=== PATIENT | male | born 1960 | race Hispanic/Latino ===

== ENCOUNTER 2018-10-09 09:05 | Outpatient (CLI) | payer BC ==
--- NOTE | 2018-10-09 10:51 | ULT ---
RENAL SONOGRAM: History: Chronic renal disease. FINDINGS: Right kidney is 10.0 cm and left is 11.8 cm. Each has a normal sonographic appearance without evidenc e of mass, stone, or hydronephrosis. Urinary bladder is incompletely distended. Bilateral ureteral je ts are visualized. IMPRESSION: Normal renal sonogram. POS: [facility]
== END 2018-10-09 09:06 | disposition home or self-care (01) ==
LOC: BICULT 09:05
PROVIDERS: ATTEND Internal Medicine Nephrology
DX: N18.3 Chronic kidney disease, stage 3 (moderate) (principal)
CPT/HCPCS: 76770

== ENCOUNTER 2019-07-05 15:53 | Inpatient (IN) | payer BC, SELFPAY ==
[2019-07-05] MEDS ORDERED: Loperamide HCl 2 MG CAP ONE (16:39)
[2019-07-05 17:01] LABS: #Basophils 0.1 thou/uL (0.0-0.2); #Eosinphils 0.1 thou/uL (0.0-0.7); #Monocytes 0.7 thou/uL (0.11-0.59); %Basophils 0.5 % (0.0-1.0); %Eosinophils 0.9 % (0.0-10.0); %Lymphocytes 18.5 % (21.0-51.0); %Monocytes 6.4 % (0.0-10.0); %Neutrophils 73.7 % (42.0-75.0); Hemoglobin 13.4 g/dL (14.0-18.0); Mean Corpuscular HGB CONC 34.6 g/dL (32.0-36.0); Mean Corpuscular Hemoglobin 28.2 pg (27.0-31.0); Mean Corpuscular Volume 81.5 fL (78.0-98.0); Mean Platelet Volume 7.6 fL (7.4-10.4); Platelet Count 210 thou/uL (130-400); RBC Distribution Width 13.7 % (11.5-14.5); Red Blood Cell (RBC) Count 4.76 mill/uL (4.70-6.10); White Blood Cell (WBC) Count 10.9 thou/uL (4.8-10.8)
[2019-07-05 17:21] LABS: ALT (SGPT) 15 U/L (8-55); AST (SGOT) 16 U/L (5-34); Albumin 4.2 g/dL (3.5-5.0); Alkaline Phosphatase 79 U/L (40-110); Anion Gap 13 mmol/L (10-20); BUN (Urea Nitrogen) 79 mg/dL (8.4-25.7); Bilirubin, Total 0.3 mg/dL (0.2-1.2); Calc. Creatinine Clearance 0 mL/min (70-130); Calcium 9.2 mg/dL (7.8-10.44); Carbon Dioxide 15 mmol/L (22-29); Chloride 113 mmol/L (98-107); Estimated GFR-MDRD 22; Globulin 3.9 g/dL (2.4-3.5); Glucose 167 mg/dL (70-105); Potassium 4.9 mmol/L (3.5-5.1); Protein, Total 8.1 g/dL (6.0-8.3); Sodium 136 mmol/L (136-145)
[2019-07-05] MEDS ORDERED: Dextrose 5% in Water 1,000 ML IV PRN (20:10)
[2019-07-05] MEDS ORDERED: Dextrose 50% Abboject 50 ML SYRINGE SLOW IVP PRN (20:10)
[2019-07-05] MEDS ORDERED: Guaifenesin DM 100-10/5 ML UDCUP PO PRN (20:10)
[2019-07-05] MEDS ORDERED: Acetaminophen 325 MG TAB PO PRN (20:10)
[2019-07-05] MEDS ORDERED: Ondansetron PF 4 MG/2 ML Vial IVP PRN (20:10)
[2019-07-05] MEDS ORDERED: ADMIXTURE FEE SC SCH ×2 (21:00→23:59)
[2019-07-05] MEDS ORDERED: INSULIN GLARGINE SC SCH ×2 (21:00→23:59)
[2019-07-05] MEDS ORDERED: PRE FILLED SC SCH ×2 (21:00→23:59)
[2019-07-05] MEDS ORDERED: Ciprofloxacin Lactate/D5W 200 MG in Premix Bag 1 BAG IVPB SCH (21:00)
--- NOTE | 2019-07-05 21:02 | HP ---
REASON FOR ADMISSION: Diarrheal illness from last 2 weeks, acute kidney injury, and metabolic acidosis. HISTORY OF PRESENTING ILLNESS: The patient gives history of having watery diarrhea nearly 8 times a day from last 2 weeks. No nausea or vomiting. No blood or mucus in the stool. He lives with his who does not have any similar illness. He has had abdominal colic, which is generalized. No complaints of fever at home. No prior colonoscopies as far as the patient can remember. PAST MEDICAL AND SURGICAL HISTORY: History of atrial fibrillation on Xarelto, dyslipidemia, diabetes mellitus type 2, hypertension, likely chronic kidney disease stage 2 to 3 and appendectomy. CURRENT MEDICATIONS: The patient is on: 1. Xarelto 20 mg daily. 2. Hydrochlorothiazide 25 mg daily. 3. Levemir 35 units subcutaneous twice daily. 4. Lipitor 10 units daily. 5. Coreg 6.25 mg twice daily. 6. Glipizide extended release 10 mg twice daily. 7. Quinapril 40 mg p.o. daily. ALLERGIES: NO KNOWN DRUG ALLERGIES. PERSONAL HISTORY: Quit drinking alcohol 2-3 years back, prior to which was drinking more than 12 packs on the weekend. Does not abuse drugs or smoke. FAMILY HISTORY: Mother at the age of 75 years from unknown cause. Father at the age of 86 years. He had history of diabetes. CODE STATUS: Full. Power of civil rights attorney is his . REVIEW OF SYSTEMS: CONSTITUTIONAL: Negative for weight loss or gain, ability to conduct usual activities. SKIN: Negative for rash, itching. EYES: Negative for double vision, pain. ENT/MOUTH: Negative for nose bleeding, neck stiffness, pain, tenderness. CARDIOVASCULAR: Negative for palpitations, dyspnea on exertion, orthopnea. RESPIRATORY: Negative for shortness of breath, wheezing, cough, hemoptysis, fever or night sweats. GASTROINTESTINAL: Negative for poor appetite, abdominal pain, heartburn, nausea, vomiting, constipation, or diarrhea. GENITOURINARY: Negative for urgency, frequency, dysuria, nocturia. MUSCULOSKELETAL: Negative for pain, swelling. NEUROLOGIC/PSYCHIATRIC: Negative for anxiety, depression. ALLERGY/IMMUNOLOGIC: Negative for skin rash, bleeding tendency. PHYSICAL EXAMINATION: GENERAL: The patient is a 59-year-old male, who is currently not in any acute distress. VITAL SIGNS: Blood pressure 160/90, pulse 76 per minute, respiratory rate 18 per minute, temperature 97.7 degrees Fahrenheit, and saturating 100% on room air. NECK: Supple. No elevated JVD. HEENT: Eyes; extraocular muscles intact. Pupils reacting to light. Oral cavity, mucous membranes are dry. No exudates or congestion. CARDIOVASCULAR: S1, S2 heard. Regular rhythm. RESPIRATORY: Air entry 1+ bilateral. No rales or rhonchi. ABDOMEN: Soft. Bowel sounds heard. No tenderness, rigidity, or guarding. EXTREMITIES: No peripheral edema or calf tenderness. VASCULAR: Peripheral pulses 1+ bilateral. No ischemic ulcerations or gangrene. CENTRAL NERVOUS SYSTEM: No gross focal deficits noted. The patient is alert, awake, and oriented well. PSYCHIATRIC: The patient's mood is euthymic. No hallucinations or delusions. LABORATORY DATA: White count of 10, H and H 13 and 38, platelet count is 210 with 73% neutrophils, MCV is 81, serum bicarb 15, serum chloride 113, BUN 79, creatinine 2.9, serum glucose 167. Liver enzymes within normal limits. Albumin is 4.2. CLINICAL IMPRESSION AND PLAN: The patient will be admitted to medical floor for acute kidney injury, metabolic acidosis, severe diarrheal illness for the last 2 weeks now. We will obtain stool studies including culture, ova, parasites, Cyclospora, Clostridium difficile and renal function panel in the morning and gentle hydration with normal saline at 100 mL/hour. We will also place him on Cipro and Flagyl. CT of the abdomen with oral contrast only and ultrasound kidneys as well will be obtained. We will continue his Lipitor, Coreg, glipizide and Levemir at a lower dose. Based on the patient's progress during his stay, a gastroenterology consultation will be obtained. We will obtain consultation with Dr. Michel who is on-call for Nephrology. No history of travel outside the country. The patient has birds as pets. No other animals in the house. Job ID: [id number]
--- NOTE | 2019-07-05 21:10 | CT ---
EXAM: Abdomen and pelvic CT scan without contrast: HISTORY: Diarrhea for 2 weeks COMPARISON: None FINDINGS: Very mild linear stranding, nonspecific, in the lung bases. Liver: Unremarkable. Gallbladder:Unremarkable. Pancreas:Unremarkable Spleen:Unremarkable. Adrenal glands:Unremarkable. Kidneys:No renal calculus or acute obstruction. No solid or cystic renal mass. No evidence for large or small bowel obstruction. There is some minimal fluid in mostly the distal an d mid small bowel and right colon without evidence for dilatation or abnormal distention. Minimal nonspecific abnormal superficial subcutaneous and subdermal increased density and fat strandi ng over the right and left superficial anterior abdominal wall at the level the umbilicus. Small fat-containing umbilical hernia. No CT evidence for acute appendicitis. Mildly distended urinary bladder. Reproductive system:Unremarkable No abscess, adenopathy, or abnormal fluid collection within the abdomen or pelvis. IMPRESSION: No significant acute process in the abdomen or pelvis. Some nonspecific superficial subcutaneous fat stranding of the anterior abdominal wall near the level of the umbilicus of uncertain etiology or significance.
[2019-07-05] MEDS ORDERED: metroNIDAZOLE 250 MG, Admixture Fee 1 EACH in Premix Bag 1 BAG IVPB SCH (22:00)
[2019-07-05 22:36] VITALS: BMI 30.7
[2019-07-05] MEDS: metroNIDAZOLE 250 MG, Admixture Fee 1 EACH in Premix Bag 1 BAG IVPB SCH (23:43)
[2019-07-05] MEDS: Sodium Chloride 0.9% 1,000 ML IV SCH (23:43)
[2019-07-05] MEDS: Ciprofloxacin Lactate/D5W 200 MG in Premix Bag 1 BAG IVPB SCH (23:43)
[2019-07-06] MEDS: HumaLOG 300 UNITS/3 ML VIAL SC PRN ×2 (05:46→13:07)
[2019-07-06 08:02] LABS: #Basophils 0.1 thou/uL (0.0-0.2); #Eosinphils 0.2 thou/uL (0.0-0.7); #Lymphocytes 1.7 thou/uL (1.20-3.40); #Monocytes 0.7 thou/uL (0.11-0.59); #Neutrophils 4.4 thou/uL (1.40-6.50); %Basophils 0.8 % (0.0-1.0); %Eosinophils 2.3 % (0.0-10.0); %Lymphocytes 24.2 % (21.0-51.0); %Monocytes 10.1 % (0.0-10.0); %Neutrophils 62.5 % (42.0-75.0); Hemoglobin 11.7 g/dL (14.0-18.0); Mean Corpuscular HGB CONC 34.6 g/dL (32.0-36.0); Mean Corpuscular Hemoglobin 28.3 pg (27.0-31.0); Mean Corpuscular Volume 81.8 fL (78.0-98.0); Mean Platelet Volume 7.4 fL (7.4-10.4); Platelet Count 181 thou/uL (130-400); RBC Distribution Width 13.8 % (11.5-14.5); Red Blood Cell (RBC) Count 4.13 mill/uL (4.70-6.10); White Blood Cell (WBC) Count 7.1 thou/uL (4.8-10.8)
[2019-07-06 08:19] LABS: Albumin 3.5 g/dL (3.5-5.0); Anion Gap 8 mmol/L (10-20); BUN (Urea Nitrogen) 65 mg/dL (8.4-25.7); BUN/Creatinine Ratio 27.43; Calc. Creatinine Clearance 43 mL/min (70-130); Calcium 8.4 mg/dL (7.8-10.44); Carbon Dioxide 17 mmol/L (22-29); Chloride 117 mmol/L (98-107); Estimated GFR-MDRD 28; Glucose 163 mg/dL (70-105); Phosphorus 3.4 mg/dL (2.3-4.7); Potassium 4.4 mmol/L (3.5-5.1); Sodium 138 mmol/L (136-145)
[2019-07-06] MEDS: Atorvastatin Calcium 10 MG TAB PO SCH (08:55)
[2019-07-06] MEDS: glipiZIDE 10 MG TAB PO SCH (08:55)
[2019-07-06] MEDS: metroNIDAZOLE 250 MG, Admixture Fee 1 EACH in Premix Bag 1 BAG IVPB SCH ×3 (08:55→23:39)
[2019-07-06] MEDS: Carvedilol 6.25 MG TAB PO SCH ×2 (08:55→17:02)
[2019-07-06] MEDS: ADMIXTURE FEE SC SCH ×2 (08:59→21:35)
[2019-07-06] MEDS: INSULIN GLARGINE SC SCH ×2 (08:59→21:35)
[2019-07-06] MEDS: PRE FILLED SC SCH ×2 (08:59→21:35)
[2019-07-06] MEDS ORDERED: FLU VACC QS2019-20(6MOS UP)/PF 60 MCG/0.5 ML SYRINGE IM ONE (09:00)
[2019-07-06] MEDS: Sodium Chloride 0.9% 1,000 ML IV SCH ×2 (11:17→21:32)
[2019-07-06] MEDS: Ciprofloxacin Lactate/D5W 200 MG in Premix Bag 1 BAG IVPB SCH (12:56)
--- NOTE | 2019-07-06 13:05 | CON ---
DATE OF CONSULTATION: SUBJECTIVE: Mr. Leon is a 59-year-old male, who was admitted for diarrhea with concomitant acute kidney injury. The acute kidney injury is felt that it may be related to the underlying diarrhea and volume depletion, currently, on empiric volume repletion. Of interest, this patient was at home on hydrochlorothiazide and quinapril and this may be also aggravating the kidney function. He is feeling better this morning. REVIEW OF SYSTEMS: Positive for diarrhea. No chest pain. No shortness of breath. No nausea. No vomiting. Appetite fair. Energy level is fair. No headache. No diplopia. No syncopal episode. No productive cough. No fever or chills. No gross hematuria. No dysuria. No urinary frequency. MEDICATIONS: Home medications include; 1. Glipizide 10 mg p.o. b.i.d. 2. Xarelto 20 mg daily. 3. Quinapril 40 mg daily. 4. Levemir 30 units subcu q.p.m. and 35 units q.a.m. 5. Hydrochlorothiazide 25 mg once a day. 6. Carvedilol 1 tablet b.i.d. 7. Atorvastatin 10 mg at bedtime. Current medications today include; 1. Carvedilol 6.25 mg p.o. b.i.d. 2. Cipro 200 mg b.i.d. 3. Glipizide 10 mg daily. 4. Humalog sliding scale. 5. Metronidazole 250 mg q.8 hours. 6. Normal saline 100 mL/h. 7. Glargine insulin 25 units subcu b.i.d. PAST MEDICAL HISTORY: 1. History of hypertension. 2. History of hyperlipidemia. 3. History of diabetes mellitus. 4. History of AFib. PAST SURGICAL HISTORY: Includes status post appendectomy, status post failed cardioversion. SOCIAL HISTORY: The patient is , 5 children. 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 No smoking. No alcohol intake. No IV drug abuse. Education, 6th grade. Sedentary lifestyle. ALLERGIES: NONE. TRAUMA: None. IMMUNIZATIONS: Not up-to-date. HOSPITALIZATIONS: Please see past medical history. FAMILY HISTORY: No family history of ESRD. PHYSICAL EXAMINATION: VITAL SIGNS: Blood pressure is 147/75, heart rate 73, respiratory rate 16, temperature 97.7, and pulse ox 96%. GENERAL: Noted to be awake, alert, comfortable, not in distress. SKIN: Adequate turgor. HEENT: Pinkish conjunctivae. Anicteric sclerae. NECK: No neck mass. No carotid bruits. No JVD. CHEST: No deformities. LUNGS: Clear breath sounds. No wheezing. No crackles. HEART: Normal sinus rhythm. No murmur. No gallops. No rubs. ABDOMEN: Globular, soft, and nontender. No masses. EXTREMITIES: No edema. NEUROLOGICAL: Moving all extremities. No tremors. No asterixis. No ataxia. LABORATORY DATA: Laboratories of July 06, 2019; white count 7.9, hemoglobin 11.7. Sodium 138, potassium 4.4, chloride 117, carbon dioxide 17, BUN 65, creatinine 2.37. On July 05, 2019, creatinine 2.93. On May 26, 2016, creatinine 1.4. CT scan of the abdomen and pelvis shows no significant process in the abdomen or pelvis. Kidneys showed no obstruction or renal calculi. Adrenal was unremarkable. ASSESSMENT AND PLAN: Acute kidney injury, consider hemodynamically-mediated renal dysfunction secondary to the diarrhea. I also feel that his medication hydrochlorothiazide and quinapril are playing a factor. This will be discontinued temporarily. There is no indication for any dialytic intervention. Agree with empiric volume repletion with this patient. In addition, urinalysis will be ordered for the patient to rule out any underlying diabetic nephropathy. Job ID: [id number]
[2019-07-06 14:31] LABS: Bacteria/HPF None Seen HPF (None Seen); Bilirubin Negative (Negative); Blood, Urine Negative (Negative); Clarity Clear (Clear); Glucose, Urine (Dipstick) 500 mg/dL (Negative); Leukocyte Negative Leu/uL (Negative); Nitrite Negative (Negative); Protein, Urine (Dipstick) Negative (Neg-Trace); RBC/HPF 0-3 HPF (0-3); Squamous Epithelial 0-3 HPF (0-3); Urobilinogen Normal mg/dL (Less than 2); WBC/HPF 0-3 HPF (0-3)
--- NOTE | 2019-07-06 16:27 | PDOC.HOSPP ---
- Subjective Encounter Date: 07/06/19 Encounter Time: 08:00 Subjective: diarrhea william has become less after hospitalization but still has it no nausea, is eating well at bedside - Objective Vital Signs & Weight: Vital Signs (12 hours) Temp Pulse Resp BP BP BP Pulse Ox 07/06/19 15:35 97.6 F 75 16 126/80 96 07/06/19 12:00 97.5 F L 75 16 128/72 96 07/06/19 08:55 147/75 H 07/06/19 07:32 97.7 F 73 16 147/75 H 96 Weight Weight 196 lb 9.6 oz I&O: 07/05/19 07/06/19 07/07/19 06:59 06:59 06:59 Intake Total 1180 480 Balance 1180 480 Result Diagrams: 07/06/19 07:42 07/06/19 07:42 Additional Labs: Accuchecks 07/06/19 07/06/19 07/05/19 12:08 04:06 23:56 POC Glucose 164 H 195 H 201 H Hospitalist ROS - Medication Medications: Active Medications Generic Name Dose Route Start Last Admin Trade Name William PRN Reason Stop Dose Admin Atorvastatin Calcium 10 mg 07/06/19 09:00 07/06/19 08:55 Lipitor PO 10 mg DAILY MUNA Administration Carvedilol 6.25 mg 07/06/19 08:00 07/06/19 08:55 Coreg PO 6.25 mg BID-WM MUNA Administration Glipizide 10 mg 07/06/19 07:30 07/06/19 08:55 Glucotrol PO 10 mg DAILY-AC MUNA Administration Sodium Chloride 1,000 mls @ 100 mls/hr 07/05/19 20:30 07/06/19 11:17 Normal Saline 0.9% IV 1,000 mls .Q10H MUNA Administration Metronidazole 250 mg/ 50 mls @ 100 mls/hr 07/05/19 23:59 07/06/19 08:55 Miscellaneous Medication 1 IVPB 50 mls each/ Device 0800,1600,2359 MUNA Administration Insulin Glargine 25 units/ 0.25 mls @ 0 mls/hr 07/06/19 09:00 07/06/19 08:59 Miscellaneous Medication 1 SC 0.25 mls each/ Miscellaneous Medication BID MUNA Administration Ciprofloxacin/Dextrose 200 mg/ 100 mls @ 100 mls/hr 07/06/19 01:00 07/06/19 12:56 Device IVPB 100 mls 0100,1300 MUNA Administration Insulin Human Lispro 0 units 07/05/19 20:10 07/06/19 13:07 Humalog SC 2 unit .MODERATE SLIDING SC PRN Administration Moderate Correctional Scale - Exam General Appearance: NAD, awake alert Eye: PERRL, anicteric sclera ENT: no oropharyngeal lesions, dry oral mucosa Neck: supple, no JVD Heart: RRR, no murmur Respiratory: no wheezes, no rales Gastrointestinal: soft, non-tender, non-distended, normal bowel sounds, no guarding, no rigidity Extremities: no cyanosis, no edema Neurological: cranial nerve grossly intact, no focal deficits Psychiatric: normal affect, A&O x 3 Hosp A/P (1) Gastroenteritis Code(s): K52.9 - NONINFECTIVE GASTROENTERITIS AND COLITIS, UNSPECIFIED Status : Acute (2) JASON (acute kidney injury) Code(s): N17.9 - ACUTE KIDNEY FAILURE, UNSPECIFIED Status: Acute (3) Metabolic acidosis Code(s): E87.2 - ACIDOSIS Status: Acute (4) Paroxysmal A-fib Code(s): I48.0 - PAROXYSMAL ATRIAL FIBRILLATION Status: Chronic (5) DM type 2 (diabetes mellitus, type 2) Status: Chronic Qualifiers: 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5 - HYPERLIPIDEMIA, UNSPECIFIED Status: Chronic - Plan xarelto is held for possible procedures if needed stool w/u so far is -ve, await cyclospora results will get GI opinion stool occult is -ve on cipro, flagyl, iv fluids continue coreg, lipitor, glipizide ct abd shows no ac pathology
--- NOTE | 2019-07-06 19:11 | CON ---
DATE OF CONSULTATION: 07/06/2019 REASON FOR CONSULTATION: Diarrhea, acute kidney injury. CONSULTING PROVIDER: Sherri Poon MD HISTORY OF PRESENT ILLNESS: The patient is a 59-year-old male with past medical history of hyperlipidemia, diabetes, hypertension, and probable chronic kidney disease presenting with complaints of diarrhea and acute kidney. He states that prior to two weeks ago, he was having approximately 1 to 3 solid to semi-solid bowel movements per day alternating between more loose type stools and constipation requiring increased straining in order to facilitate defecation; however, approximately 2 weeks ago, he began having more diarrhea, characterized as having four liquid bowel movements per day, that were associated with fecal urgency, but did not have any difficulty with defecation. He also endorse increased generalized weakness. It progressively got worse over the last 2 weeks that ultimately prompted him to seek healthcare assistance at [facility] ER. While in the ER, he was noted to have an elevated BUN and creatinine consistent with acute kidney injury, was ultimately admitted to the hospital for further evaluation of his diarrhea and resulted dehydration. He was placed on IV fluids, and after undergoing an infectious stool workup, was placed on ciprofloxacin and Flagyl. While on these regimens, he has had one semi-solid bowel movement this morning with no further episodes of diarrhea later on today. Currently, he denies any nausea, vomiting, fevers, chills, abdominal pain, dysphagia, odynophagia, constipation, hematemesis, melena, or hematochezia. Of note, approximately 2 weeks ago, the patient had consumed tacos from a taco truck and it was soon after the consumption of these tacos that his diarrhea appeared. REVIEW OF SYSTEMS: A 10-category review of systems was obtained with all responses negative except for the pertinent positives as listed in HPI. PAST MEDICAL HISTORY: As per HPI. PAST SURGICAL HISTORY: Appendectomy. FAMILY HISTORY: Denies any GI malignancies. SOCIAL HISTORY: Denies any tobacco, alcohol, or illicit drug use. OUTPATIENT MEDICATIONS: Reviewed. ALLERGIES: NO KNOWN DRUG ALLERGIES. PHYSICAL EXAMINATION: VITAL SIGNS: Temperature 97.6, pulse 75, blood pressure 126/80, respiratory rate 16, saturating 96% on room air. GENERAL: The patient was lying in bed, in no acute distress. Alert and oriented x4. Latvian-speaking only. HEENT: Normocephalic and atraumatic. NECK: Supple. No JVD or scleral icterus noted. CARDIOVASCULAR: Regular rate and rhythm with no discernible murmurs, gallops, or rubs. RESPIRATORY: Clear to auscultation bilaterally with no discernible wheezes or rales. ABDOMEN: Normoactive bowel sounds. Soft, nontender, nondistended. EXTREMITIES: No cyanosis, clubbing, or edema. LABORATORY DATA: CBC with a white blood cell count of 7.1, hemoglobin 11.7, hematocrit 33.8, platelets 181. Chemistry with a sodium of 138, potassium 4.4, chloride 117, CO2 17, BUN 65, creatinine 2.37, glucose 163. AST 16, ALT 15, alkaline phosphatase 79, total bilirubin 0.3. Infectious stool studies have thus far been negative for Campylobacter, E coli, and C diff with the ova and parasites also negative. Stool culture is still pending at this time. IMAGING DATA: CT of the abdomen and pelvis was obtained on July 05, 2019, which showed minimal fluid within the mid and distal small bowel in addition to a small fat containing umbilical hernia. There was no other intraabdominal processes noted on imaging. ASSESSMENT AND PLAN: The patient is a 59-year-old male with past medical history of atrial fibrillation, hyperlipidemia, diabetes, hypertension, and probable chronic kidney disease, presenting with worsening diarrhea, and resultant acute kidney injury from dehydration, most likely from an infectious etiology. Acute onset diarrhea. The patient states that he was in his usual state of health until approximately 2 weeks ago when he began to have increased watery bowel movements after consuming food from a food truck. This was characterized as having approximately four liquid bowel movements per day and despite being thirsty all the time and trying to maintain oral intake. When admitted here to the hospital, he was noted to have an elevated BUN and creatinine consistent with acute kidney injury. However, since being placed on antibiotic therapy, he has had a significant reduction in his bowel movements having only approximately one over the last 24 hours. At this time, the likelihood of an infectious etiology is more likely given his acute onset diarrhea and response to antibiotic regimen. However, stool culture still pending at this time, so further tailoring of antibiotics cannot be performed, and he may ultimately require treatment with both ciprofloxacin and Flagyl for a total of 7 days. Upon further questioning the patient, he did have some alternating bowel habits prior to coming into the hospital, which may make a little more confusing, but had a fairly low fiber intake which could contribute to onset of chronic diarrhea as well. RECOMMENDATIONS: 1. Would continue antibiotic regimen as you are doing, but would consider changing to oral regimen in anticipation of discharge for a total of 7-day therapy. 2. Continue with IV fluids and monitoring of patient's renal function. 3. Would recommend a higher fiber diet upon discharge. 4. Would continue to monitor patient's stool output over the next 24 hours, and if minimal, we would could consider discharge to home and follow up in the outpatient clinic. 5. No endoscopic management is indicated at this time given almost complete resolution of the diarrhea. We will continue to follow. Please call with any questions. Job ID: [id number]
[2019-07-07] MEDS: Ciprofloxacin Lactate/D5W 200 MG in Premix Bag 1 BAG IVPB SCH ×2 (01:56→12:31)
[2019-07-07] MEDS: Sodium Chloride 0.9% 1,000 ML IV SCH ×2 (05:21→17:31)
[2019-07-07 06:30] LABS: Albumin 3.4 g/dL (3.5-5.0); Anion Gap 9 mmol/L (10-20); BUN (Urea Nitrogen) 47 mg/dL (8.4-25.7); Calc. Creatinine Clearance 49 mL/min (70-130); Carbon Dioxide 16 mmol/L (22-29); Chloride 115 mmol/L (98-107); Estimated GFR-MDRD 33; Glucose 118 mg/dL (70-105); Phosphorus 2.9 mg/dL (2.3-4.7); Potassium 4.3 mmol/L (3.5-5.1); Sodium 136 mmol/L (136-145)
[2019-07-07] MEDS: PRE FILLED SC SCH ×2 (07:55→19:40)
[2019-07-07] MEDS: ADMIXTURE FEE SC SCH ×2 (07:55→19:40)
[2019-07-07] MEDS: INSULIN GLARGINE SC SCH ×2 (07:55→19:40)
[2019-07-07] MEDS: Atorvastatin Calcium 10 MG TAB PO SCH (07:56)
[2019-07-07] MEDS: glipiZIDE 10 MG TAB PO SCH (07:56)
[2019-07-07] MEDS: Carvedilol 6.25 MG TAB PO SCH ×2 (07:56→16:52)
[2019-07-07] MEDS: metroNIDAZOLE 250 MG, Admixture Fee 1 EACH in Premix Bag 1 BAG IVPB SCH ×3 (08:43→23:18)
[2019-07-07] MEDS: Sodium Bicarbonate Tab 325 MG TAB PO SCH ×3 (10:14→19:40)
--- NOTE | 2019-07-07 10:18 | PRG ---
DATE OF SERVICE: 07/07/2019 SUBJECTIVE: Mr. Leon is a 59-year-old male who was seen for his acute kidney injury. He was noted to have had a hemodynamically-mediated renal dysfunction. The patient was currently taking Accupril and hydrochlorothiazide. This has been discontinued. He is on empiric volume repletion. The diarrhea may have precipitated acute kidney injury. No other complaints today. No chest pain or shortness of breath. OBJECTIVE: VITAL SIGNS: Blood pressure 125/77, heart rate 77, respiratory rate 18, temperature 97.4, and pulse ox 97%. GENERAL: Noted to be awake, alert, comfortable, not in distress. SKIN: Adequate turgor. HEENT: He has a pinkish conjunctivae. Anicteric sclerae. NECK: No neck mass. No carotid bruits. No JVD. CHEST: No deformities. LUNGS: Clear breath sounds. HEART: Normal sinus rhythm. No murmur. No gallops. No rubs. ABDOMEN: Globular, soft, nontender. No masses. EXTREMITIES: Show no edema, no deformities. MEDICATIONS: Medications of July 07, 2019, was reviewed. LABORATORY DATA: Laboratories of July 07, 2019; sodium 136, potassium 4.3, chloride 115, carbon dioxide 16, BUN 47, creatinine 2.08, glucose 118, calcium 8, phosphorus 2.9, albumin 3.4. ASSESSMENT AND PLAN: 1. Acute kidney injury - hemodynamically-mediated renal dysfunction. Slowly improving renal function. Continue IV hydration. No indication for any dialytic intervention. Please note, creatinine peaked at 2.93 and is now currently at 2.08. 2. Metabolic acidosis. Start sodium bicarbonate 650 mg one tablet t.i.d. Recheck basic metabolic panel in a.m. Job ID: [id number]
--- NOTE | 2019-07-07 13:36 | PDOC.HOSPP ---
- Subjective Encounter Date: 07/07/19 Encounter Time: 08:45 Subjective: no diarrhea now is eating well at bedside - Objective Vital Signs & Weight: Vital Signs (12 hours) Temp Pulse Resp BP BP Pulse Ox 07/07/19 11:31 97.9 F 70 18 124/73 98 07/07/19 08:00 97.4 F L 77 18 125/77 97 07/07/19 07:56 126/80 Weight Weight 196 lb 9.6 oz I&O: 07/06/19 07/07/19 07/08/19 06:59 06:59 06:59 Intake Total 1180 3880 600 Balance 1180 3880 600 Result Diagrams: 07/06/19 07:42 07/07/19 05:38 Additional Labs: Accuchecks 07/07/19 07/07/19 07/06/19 11:36 04:36 19:43 POC Glucose 118 H 112 H 207 H 07/06/19 15:39 POC Glucose 119 H Hospitalist ROS - Medication Medications: Active Medications Generic Name Dose Route Start Last Admin Trade Name Meng PRN Reason Stop Dose Admin Atorvastatin Calcium 10 mg 07/06/19 09:00 07/07/19 07:56 Lipitor PO 10 mg DAILY MUNA Administration Carvedilol 6.25 mg 07/06/19 08:00 07/07/19 07:56 Coreg PO 6.25 mg BID-WM MUNA Administration Glipizide 10 mg 07/06/19 07:30 07/07/19 07:56 Glucotrol PO 10 mg DAILY-AC MUNA Administration Sodium Chloride 1,000 mls @ 100 mls/hr 07/05/19 20:30 07/07/19 05:21 Normal Saline 0.9% IV 1,000 mls .Q10H MUNA Administration Metronidazole 250 mg/ 50 mls @ 100 mls/hr 07/05/19 23:59 07/07/19 08:43 Miscellaneous Medication 1 IVPB 50 mls each/ Device 0800,1600,2359 MUNA Administration Insulin Glargine 25 units/ 0.25 mls @ 0 mls/hr 07/06/19 09:00 07/07/19 07:55 Miscellaneous Medication 1 SC 0.25 mls each/ Miscellaneous Medication BID MUNA Administration Ciprofloxacin/Dextrose 200 mg/ 100 mls @ 100 mls/hr 07/06/19 01:00 07/07/19 12:31 Device IVPB 100 mls 0100,1300 MUNA Administration Insulin Human Lispro 0 units 07/05/19 20:10 07/06/19 13:07 Humalog SC 2 unit .MODERATE SLIDING SC PRN Administration Moderate Correctional Scale Sodium Bicarbonate 650 mg 07/07/19 09:00 07/07/19 10:14 Bicarbonate, Sodium PO 650 mg TID MUNA Administration - Exam General Appearance: NAD, awake alert Eye: PERRL, anicteric sclera ENT: no oropharyngeal lesions, moist mucosa Neck: supple, no JVD Heart: no murmur, no gallops Respiratory: no wheezes, no rales Gastrointestinal: soft, non-tender, non-distended, normal bowel sounds Extremities: no cyanosis, no edema Neurological: cranial nerve grossly intact, no focal deficits Psychiatric: normal affect, A&O x 3 Hosp A/P (1) Gastroenteritis Code(s): K52.9 - NONINFECTIVE GASTROENTERITIS AND COLITIS, UNSPECIFIED Status : Resolved (2) JASON (acute kidney injury) Code(s): N17.9 - ACUTE KIDNEY FAILURE, UNSPECIFIED Status: Acute (3) Metabolic acidosis Code(s): E87.2 - ACIDOSIS Status: Acute (4) Paroxysmal A-fib Code(s): I48.0 - PAROXYSMAL ATRIAL FIBRILLATION Status: Chronic (5) DM type 2 (diabetes mellitus, type 2) Status: Chronic Qualifiers: Diabetes mellitus jail insulin use: with bed bug exterminator use Diabetes mellitus complication status: with kidney complications Diabetes mellitus complication detail: with chronic kidney disease Chronic kidney disease stage : stage 3 (moderate) Qualified Code(s): E11.22 - Type 2 diabetes mellitus with diabetic chronic kidney disease; N18.3 - Chronic kidney disease, stage 3 ( moderate); Z79.4 - [facility] (current) use of insulin (6) HTN (hypertension) Code(s): I10 - ESSENTIAL (PRIMARY) HYPERTENSION Status: Chronic Qualifiers: Hypertension type: essential hypertension Qualified Code(s): I10 - Essential (primary) hypertension (7) Dyslipidemia Code(s): E78.5 - HYPERLIPIDEMIA, UNSPECIFIED Status: Chronic - Plan restart xarelto stool w/u so far is -ve, await cyclospora results stool occult is -ve on cipro, flagyl, iv fluids continue coreg, lipitor, glipizide ct abd shows no ac pathology dc plan in am renal function is slowly trending towards baseline
--- NOTE | 2019-07-07 22:56 | PRG ---
DATE OF SERVICE: 07/07/2019 REASON FOR CONSULTATION: Diarrhea, acute kidney injury. SUBJECTIVE: The patient states that he did not have any bowel movements today and has had no other problems or abnormalities during the course of the last 24 to 48 hours. Currently, he denies any nausea, vomiting, fevers, chills, abdominal pain, dysphagia, odynophagia, constipation, hematemesis, melena, or hematochezia. OBJECTIVE: VITAL SIGNS: Temperature 97.7, pulse 85, blood pressure 155/77, respiratory rate 18, saturating 97% on room air. GENERAL: The patient was lying in bed, in no acute distress. Alert and oriented x4. [place]or[place]-speaking only. CARDIOVASCULAR: Irregularly irregular rhythm. RESPIRATORY: Clear to auscultation bilaterally. ABDOMEN: Normoactive bowel sounds. Soft, nontender, nondistended. EXTREMITIES: No cyanosis, clubbing, or edema. LABORATORY DATA: Chemistry with a sodium of 136, potassium 4.3, chloride 115, CO2 of 16, BUN 47, creatinine 2.08, glucose 118. IMAGING DATA: No current GI imaging is available for review. ASSESSMENT AND PLAN: The patient is a 59-year-old male with past medical history of atrial fibrillation, hyperlipidemia, diabetes, hypertension, and probable chronic kidney disease presenting with significant diarrhea resulting in acute kidney injury from dehydration. Diarrhea. The patient initially presented with severe diarrhea having approximately four liquid bowel movements per day, but apparently resulted in significant dehydration as evidenced by elevated BUN and creatinine on initial labs in the ER. However, since being placed on antibiotic therapy and in addition to IV fluids, he has had significant reduction in the number of bowel movements he has had over the last 24 to 48 hours. Preliminary lead on stool culture is negative thus far showing normal enteric duyen raising the question whether or not an infectious etiology for his significant diarrhea versus a poor fiber diet or viral illness. However, given his good response to the antibiotic therapy that should be required for a total duration of therapy of approximately 7 days. RECOMMENDATIONS: 1. We will continue with the antibiotic regimen as you are doing, but consider changing to oral regimen in anticipation of discharge. 2. Continue IV fluids and monitoring the patient's renal function. 3. We would recommend higher fiber diet. Given the patient's improving renal function and complete resolution of the diarrhea, we will sign off. Please call with any additional questions. Job ID: [id number]
[2019-07-08] MEDS: Ciprofloxacin Lactate/D5W 200 MG in Premix Bag 1 BAG IVPB SCH (00:21)
[2019-07-08] MEDS: Sodium Chloride 0.9% 1,000 ML IV SCH (04:22)
[2019-07-08 06:22] LABS: Albumin 3.2 g/dL (3.5-5.0); Anion Gap 11 mmol/L (10-20); BUN (Urea Nitrogen) 33 mg/dL (8.4-25.7); BUN/Creatinine Ratio 17.19; Calc. Creatinine Clearance 53 mL/min (70-130); Calcium 7.8 mg/dL (7.8-10.44); Carbon Dioxide 16 mmol/L (22-29); Chloride 118 mmol/L (98-107); Estimated GFR-MDRD 36; Glucose 128 mg/dL (70-105); Phosphorus 2.2 mg/dL (2.3-4.7); Potassium 4.5 mmol/L (3.5-5.1); Sodium 140 mmol/L (136-145)
[2019-07-08] MEDS: glipiZIDE 10 MG TAB PO SCH (09:20)
[2019-07-08] MEDS: Sodium Bicarbonate Tab 325 MG TAB PO SCH (09:20)
[2019-07-08] MEDS: Atorvastatin Calcium 10 MG TAB PO SCH (09:20)
[2019-07-08] MEDS: Carvedilol 6.25 MG TAB PO SCH (09:20)
[2019-07-08] MEDS: INSULIN GLARGINE SC SCH (09:53)
[2019-07-08] MEDS: metroNIDAZOLE 250 MG, Admixture Fee 1 EACH in Premix Bag 1 BAG IVPB SCH (09:53)
[2019-07-08] MEDS: PRE FILLED SC SCH (09:53)
[2019-07-08] MEDS: ADMIXTURE FEE SC SCH (09:53)
--- NOTE | 2019-07-08 09:55 | PRG ---
DATE OF SERVICE: 07/08/2019 SUBJECTIVE: Mr. Leon is a 59-year-old male, who was seen by [facility]al [facility] for his acute kidney injury. He initially came with diarrhea and we felt that he simply had a hemodynamically-mediated renal dysfunction. This morning, he is feeling better. His diarrhea has much improved. The patient denies any chest pain or shortness of breath. OBJECTIVE: VITAL SIGNS: Blood pressure 128/81, heart rate 75, respiratory rate 18, temperature 98.6, and pulse ox is 98%. GENERAL: He is noted to be awake, alert, comfortable, not in distress. SKIN: Adequate turgor. HEENT: He has pinkish conjunctivae. Anicteric sclerae. NECK: No neck mass. No carotid bruits. No JVD. CHEST: No deformities. LUNGS: Clear breath sounds. No wheezing. No crackles. HEART: Normal sinus rhythm. No murmur. No gallops. No rubs. ABDOMEN: Globular, soft, and nontender. No masses. EXTREMITIES: No edema. No deformities. MEDICATIONS: Medications of July 08, 2019, were reviewed. LABORATORY DATA: Laboratories of July 08, 2019; sodium 140, potassium 4.5, chloride 118, carbon dioxide 16, BUN 33, creatinine 1.92, glucose 128, phosphorus 2.2, calcium 7.8, and albumin 3.2. ASSESSMENT AND PLAN: 1. Metabolic acidosis, currently on sodium bicarbonate 650 mg p.o. t.i.d. 2. Acute kidney [id number] renal dysfunction. Continue supportive care. Renal function is much improved with a creatinine of 1.92. Okay for discharge. We will follow up this patient in the [facility]. I will see him back in 4 weeks. Job ID: [id number]
[2019-07-08] MEDS: HumaLOG 300 UNITS/3 ML VIAL SC PRN (12:50)
[2019-07-08 14:20] VITALS: BP 179/94; TEMP 97.5
--- NOTE | 2019-07-08 18:34 | DIS ---
DATE OF ADMISSION: 07/05/2019 DATE OF DISCHARGE: 07/08/2019 DISCHARGE DISPOSITION: Home. PRIMARY DISCHARGE DIAGNOSES: 1. Acute gastroenteritis with unclear etiology, but resolving with antibiotics now. 2. Acute kidney injury. 3. Metabolic acidosis, resolving likely chronic kidney disease stage 3 or 4. 4. Hypertension. 5. Diabetes mellitus type 2. 6. History of paroxysmal atrial fibrillation. 7. Dyslipidemia. PROCEDURES DONE DURING HOSPITALIZATION: CT abdomen and pelvis done showed no significant acute process in the abdomen or pelvis. Stool studies including C diff, Campylobacter antigen assay and Shiga toxin test were all negative. Giardia lamblia negative. Cryptosporidium parvum negative. Stool occult blood was negative. Blood cultures x2 negative. White count of 10, H and H of 13 and 38 on the day of admission. White count dropped down to 7 on the . Discharge BUN and creatinine are 33 and 1.9. Discharge serum bicarb was 16. Admitting BUN and creatinine was 79 and 2.9 with serum bicarb of 15. INPATIENT CONSULT: Dr. Michel for Nephrology, Dr. Mikey Syed for Gastroenterology. DISCHARGE MEDICATIONS: 1. Ciprofloxacin 250 mg twice daily for another 6 days. 2. Flagyl 250 mg p.o. three times daily for another 6 days. 3. Sodium bicarbonate 650 mg twice daily. 4. Xarelto 20 mg daily. 5. Levemir 35 units subcutaneous daily. 6. Glipizide 10 mg twice daily. 7. Carvedilol 6.25 mg twice daily. 8. Atorvastatin 10 mg daily. ALLERGIES: NO KNOWN DRUG ALLERGIES. DISCHARGE PLAN: The patient is advised to follow up with Dr. Michel closely in view of recent acute kidney injury with likely chronic kidney disease. Also, his medication needs to be closely monitored according to creatinine. He needs to follow up with his primary care physician, in 1 week. BRIEF COURSE DURING HOSPITALIZATION: The patient initially came to ER with complaints of diarrhea for last 2 weeks. In view of this history and clinical and lab findings of acute kidney injury, metabolic acidosis, the patient was admitted to medical floor. He was aggressively hydrated. He was placed on broad-spectrum antibiotics. His creatinine almost improved by 1 mg. His discharge creatinine is around 1.2 mg/dL now. The patient's bicarb has remained around 16 and he is on sodium bicarb tablets. His diarrhea completely resolved within 24 hours of hospitalization. He has had a CT abdomen and pelvis done, which did not reveal any acute pathology. He has also had consultation with Dr. Mikey Syed. As the patient responded to Cipro and Flagyl, he needs to continue for another 6 days. All stool studies were negative including ova and parasites. Prior to discharge, he is ambulating and eating well. Likely, Xarelto needs to be reduced to 15 mg if his creatinine were to remain at current levels. He was counseled to follow up with Dr. Michel in 1 week and have lab work done for the same. He is otherwise hemodynamically stable and will be shortly discharged home. Please note, I have seen and examined the patient on the day of discharge. Job ID: [id number]
== END 2019-07-08 14:29 | disposition home or self-care (01) | DRG 683 ==
LOC: ERS 15:53 → T4-A 17:33
PROVIDERS: ADMIT Internal Medicine; ATTEND Internal Medicine
PROC: 3E0234Z Introduction of Serum, Toxoid and Vaccine into Muscle, Percutaneous Approach (ICD-10-PCS; principal; 2019-07-06)
PROC: 3E02340 Introduction of Influenza Vaccine into Muscle, Percutaneous Approach (ICD-10-PCS; 2019-07-06)
DX: N17.9 Acute kidney failure, unspecified (principal); E87.2 Acidosis; K52.9 Noninfective gastroenteritis and colitis, unspecified; E78.5 Hyperlipidemia, unspecified; E78.00 Pure hypercholesterolemia, unspecified; I25.10 Atherosclerotic heart disease of native coronary artery without angina pectoris; I48.0 Paroxysmal atrial fibrillation; E11.22 Type 2 diabetes mellitus with diabetic chronic kidney disease; N18.3 Chronic kidney disease, stage 3 (moderate); I12.9 Hypertensive chronic kidney disease with stage 1 through stage 4 chronic kidney disease, or unspecified chronic kidney disease; E86.0 Dehydration; Z79.4 Long term (current) use of insulin; Z90.49 Acquired absence of other specified parts of digestive tract; Z79.01 Long term (current) use of anticoagulants; Z79.899 Other long term (current) drug therapy; Z23 Encounter for immunization
CPT/HCPCS: 36415; 36416; 74176; 80053; 80069; 81001; 82274; 85025; 87015; 87040; 87045; 87046; 87206; 87324; 87328; 87329; 87427; 87449; 90471; 90686; 90732; 93005; 93010; 96360; 96361; G0008; G0009; J0744; J1815

== ENCOUNTER 2020-03-14 11:12 | Emergency (ER) | payer SELFPAY ==
[2020-03-14 11:36] LABS: #Eosinphils 0.1 thou/uL (0.0-0.7); #Lymphocytes 1.9 thou/uL (1.20-3.40); #Monocytes 0.8 thou/uL (0.11-0.59); #Neutrophils 5.3 thou/uL (1.40-6.50); %Basophils 0.5 % (0.0-1.0); %Eosinophils 1.4 % (0.0-10.0); %Lymphocytes 23.3 % (21.0-51.0); %Monocytes 9.7 % (0.0-10.0); Hemoglobin 12.9 g/dL (14.0-18.0); Mean Corpuscular Hemoglobin 29.1 pg (27.0-31.0); Mean Corpuscular Volume 83.1 fL (78.0-98.0); Mean Platelet Volume 7.6 fL (7.4-10.4); Platelet Count 225 thou/uL (130-400); RBC Distribution Width 14.1 % (11.5-14.5); Red Blood Cell (RBC) Count 4.43 mill/uL (4.70-6.10); White Blood Cell (WBC) Count 8.2 thou/uL (4.8-10.8)
[2020-03-14 11:57] LABS: ALT (SGPT) 16 U/L (8-55); AST (SGOT) 14 U/L (5-34); Albumin 4.1 g/dL (3.5-5.0); Alkaline Phosphatase 93 U/L (40-110); Anion Gap 12 mmol/L (10-20); BUN (Urea Nitrogen) 51 mg/dL (8.4-25.7); Bilirubin, Total 0.3 mg/dL (0.2-1.2); Calc. Creatinine Clearance 0 mL/min (70-130); Calcium 9.2 mg/dL (7.8-10.44); Carbon Dioxide 24 mmol/L (22-29); Chloride 106 mmol/L (98-107); Estimated GFR-MDRD 25; Globulin 3.9 g/dL (2.4-3.5); Glucose 255 mg/dL (70-105); Potassium 5.8 mmol/L (3.5-5.1); Sodium 136 mmol/L (136-145)
== END 2020-03-14 15:45 | disposition home or self-care (01) ==
LOC: ERS 11:12
DX: E86.0 Dehydration (principal); R42 Dizziness and giddiness; E78.5 Hyperlipidemia, unspecified; E78.00 Pure hypercholesterolemia, unspecified; I25.10 Atherosclerotic heart disease of native coronary artery without angina pectoris; Z79.4 Long term (current) use of insulin; I10 Essential (primary) hypertension; Z79.899 Other long term (current) drug therapy; Z79.01 Long term (current) use of anticoagulants
CPT/HCPCS: 36600; 80053; 85025; 93005

== ENCOUNTER 2020-10-10 11:03 | Emergency (ER) | payer BC, SELFPAY ==
--- NOTE | 2020-10-10 11:59 | RAD ---
XR Foot Lt 3 View STANDARD INDICATION: History of stepping on a with tip on Saturday with foot infection COMPARISON: None. FINDINGS: Bones: No acute fracture identified. Joints: Joints spaces appear preserved. Lisfranc alignment: Lisfranc alignment appears within normal limits. Soft tissues: There are Monckeberg calcifications within the soft tissues of the foot and ankle. IMPRESSION: No radiographic evidence of osteomyelitis. No acute fracture or subluxation.
== END 2020-10-10 12:06 | disposition home or self-care (01) ==
LOC: ERS 11:03
DX: L03.116 Cellulitis of left lower limb (principal); E78.5 Hyperlipidemia, unspecified; E78.00 Pure hypercholesterolemia, unspecified; I25.10 Atherosclerotic heart disease of native coronary artery without angina pectoris; E11.9 Type 2 diabetes mellitus without complications; Z79.4 Long term (current) use of insulin; I10 Essential (primary) hypertension; Z79.899 Other long term (current) drug therapy; Z79.01 Long term (current) use of anticoagulants

== ENCOUNTER 2020-10-12 12:58 | Emergency (ER) | payer BC ==
--- NOTE | 2020-10-12 13:47 | RAD ---
EXAM: XR Foot Lt 3 View STANDARD PROVIDED CLINICAL HISTORY: Left foot wound COMPARISON: 10/10/2020 FINDINGS: There is no evidence for fracture or other acute osseous abnormality. Alignment appears anatomic. Dilia nt spaces appear preserved. IMPRESSION: No evidence for an acute osseous abnormality. If there is persistent clinical concern, conservative m anagement and follow-up imaging advised.
[2020-10-12 13:50] LABS: #Eosinphils 0.1 thou/uL (0.0-0.7); #Lymphocytes 1.7 thou/uL (1.20-3.40); #Neutrophils 7.5 thou/uL (1.40-6.50); %Basophils 0.4 % (0.0-1.0); %Eosinophils 1.2 % (0.0-10.0); %Lymphocytes 16.8 % (21.0-51.0); %Monocytes 9.2 % (0.0-10.0); %Neutrophils 72.4 % (42.0-75.0); Hemoglobin 14.1 g/dL (14.0-18.0); Mean Corpuscular Hemoglobin 27.8 pg (27.0-31.0); Mean Corpuscular Volume 84.1 fL (78.0-98.0); Mean Platelet Volume 7.5 fL (7.4-10.4); Platelet Count 229 thou/uL (130-400); RBC Distribution Width 13.7 % (11.5-14.5); White Blood Cell (WBC) Count 10.4 thou/uL (4.8-10.8)
[2020-10-12 14:28] LABS: ALT (SGPT) 12 U/L (8-55); AST (SGOT) 17 U/L (5-34); Albumin 3.8 g/dL (3.5-5.0); Alkaline Phosphatase 98 U/L (40-110); Anion Gap 16 mmol/L (10-20); BUN (Urea Nitrogen) 47 mg/dL (8.4-25.7); Bilirubin, Total 0.3 mg/dL (0.2-1.2); Calc. Creatinine Clearance 0 mL/min (70-130); Calcium 8.9 mg/dL (7.8-10.44); Carbon Dioxide 22 mmol/L (22-29); Chloride 98 mmol/L (98-107); Globulin 4.5 g/dL (2.4-3.5); Glucose 478 mg/dL (70-105); Protein, Total 8.3 g/dL (6.0-8.3); Sodium 131 mmol/L (136-145)
== END 2020-10-12 16:42 | disposition home or self-care (01) ==
LOC: ERS 12:58
DX: L03.116 Cellulitis of left lower limb (principal); Z79.899 Other long term (current) drug therapy; E78.5 Hyperlipidemia, unspecified; E78.00 Pure hypercholesterolemia, unspecified; I25.10 Atherosclerotic heart disease of native coronary artery without angina pectoris; E11.9 Type 2 diabetes mellitus without complications; Z79.4 Long term (current) use of insulin; I10 Essential (primary) hypertension
CPT/HCPCS: 36415; 80053; 83605; 85025; 87040

== ENCOUNTER 2023-09-04 10:42 | Outpatient (CLI) | payer BC ==
[2023-09-04] MEDS ORDERED: Regadenoson 0.4 MG/5 ML SYRINGE ONE (11:01)
== END 2023-09-04 10:43 | disposition home or self-care (01) ==
LOC: NM 10:42
PROVIDERS: ATTEND Internal Medicine Cardiovascular Disease
DX: R06.02 Shortness of breath (principal); R94.39 Abnormal result of other cardiovascular function study
CPT/HCPCS: 78452; 93017; A9502; J2785